=== PATIENT | male | born 1965 | race Caucasian/White ===

== ENCOUNTER 2017-09-01 14:00 | Emergency (ER) | payer SELFPAY ==
[2017-09-01 14:37] VITALS: BP 186/99; PULSE 67; RESP 18; TEMP 98.8; O2SAT 97
--- NOTE | 2017-09-01 15:16 | PD ---
HPI Chief Complaint: Edema Time Seen by Provider: 14:37 Travel History International Travel<30 days: No Contact w/Intl Traveler<30days: No Traveled to known affect area: No History of Present Illness HPI Patient presents to the emergency department for evaluation right lower extremity erythema and edema. Patient noticed it yesterday. States he has had cellulitis in the past and this is similar to that. Last episode was urine half ago. Denies any recent travels. No history DVT. No fever or chills. Pain is moderate in severity. He has no other symptoms to report. PFSH Past Medical History Cardiovascular Problems: Yes Social History Tobacco Use: No Allergies-Medications (Allergen,Severity, Reaction): Coded Allergies: No Known Allergies (Unverified , 09/01/17) Review of Systems Except as stated in HPI: all other systems reviewed are Neg Physical Exam Narrative well-nourished male patient, ambulatory with a non-ataxic gait, no acute distress. He appears nontoxic. Even respirations. His heart rate is regular. He has no obvious deformity. There is erythema and moderate edema on the right distal lower extremity. He moves all extremities. He speaks clearly to me. Data Data Last Documented VS Vital Signs Date Time Temp Pulse Resp B/P (MAP) Pulse Ox O2 Delivery O2 Flow Rate FiO2 09/01/17 14:37 98.8 67 18 186/99 (128) 97 Orders Orders Complete Blood Count With Diff (09/01/17 14:39) Basic Metabolic Panel (Bmp) (09/01/17 14:39) Coag Profile (09/01/17 14:39) MDM Medical Decision Making Medical Screen Exam Complete: Yes Emergency Medical Condition: Yes Medical Record Reviewed: Yes Differential Diagnosis Cellulitis versus abscess versus DVT Narrative Course 52-year-old male presents to the emergency department for evaluation right lower extremity erythema and edema. Workup is initiated in triage. Prior to completion, patient chooses to leave AMA: The risks of leaving against medical advice without further evaluation treatment were discussed with the patient. These risks include cardiac dysfunction, cardiac dysrhythmia, possible heart attack, possible stroke or . The patient indicated understanding of these risks and appeared to have the capacity to make this decision. Diagnosis Primary Impression: Leg edema, right Disposition: 07 AGAINST MEDICAL ADVICE Condition: Stable [place]SamiraDeborah[place]ju[place] Sep 01, 2017 15:16
== END 2017-09-01 15:16 | disposition left against medical advice (07) ==
LOC: NED 14:00
DX: R60.0 Localized edema (principal); Z53.21 Procedure and treatment not carried out due to patient leaving prior to being seen by health care provider
CPT/HCPCS: 99281